=== PATIENT | female | born 1990 | race American Indian/Alaskan Native ===

== ENCOUNTER 2019-08-30 14:58 | Emergency (ER) | payer SELFPAY ==
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
[2019-08-30 15:23] VITALS: BP 111/72
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
== END 2019-08-30 16:05 | disposition home or self-care (01) ==
LOC: ED 14:58
DX: T65.891A Toxic effect of other specified substances, accidental (unintentional), initial encounter (principal); Z02.89 Encounter for other administrative examinations; Y92.89 Other specified places as the place of occurrence of the external cause
CPT/HCPCS: 99283